=== PATIENT | female | born 1975 | race Caucasian/White ===

== ENCOUNTER 2016-10-11 10:35 | Emergency (ER) | payer BC | END 2016-10-11 12:29 | disposition home or self-care (01) | LOC: ER 10:35 | DX: J02.9 Acute pharyngitis, unspecified (principal); E03.9 Hypothyroidism, unspecified; G43.909 Migraine, unspecified, not intractable, without status migrainosus; F17.210 Nicotine dependence, cigarettes, uncomplicated; Z79.899 Other long term (current) drug therapy; Z88.6 Allergy status to analgesic agent; Z88.7 Allergy status to serum and vaccine; Z91.041 Radiographic dye allergy status | CPT/HCPCS: 36415; 87651 ==

== ENCOUNTER 2016-11-18 13:20 | Emergency (ER) | payer BC | END 2016-11-18 15:00 | disposition home or self-care (01) | LOC: ER 13:20 | DX: T63.441A Toxic effect of venom of bees, accidental (unintentional), initial encounter (principal); G43.909 Migraine, unspecified, not intractable, without status migrainosus; F17.210 Nicotine dependence, cigarettes, uncomplicated; Z79.899 Other long term (current) drug therapy; Z91.041 Radiographic dye allergy status; Z88.6 Allergy status to analgesic agent; Z88.7 Allergy status to serum and vaccine | CPT/HCPCS: 96374; 96375; J1200 ==